=== PATIENT | female | born 1975 | race Caucasian/White ===

== ENCOUNTER 2022-07-01 07:57 | Day surgery (SDC) | payer BC ==
[2022-06-30 12:16] VITALS: BMI 22.3
[2022-07-01 09:17] VITALS: RESP 18; TEMP 98
[2022-07-01 09:37] VITALS: BP 105/65; PULSE 72
== END 2022-07-01 09:37 | disposition home or self-care (01) ==
LOC: FASU-ENDO 07:57
PROVIDERS: ATTEND Internal Medicine Gastroenterology
PROC: 0DJD8ZZ Inspection of Lower Intestinal Tract, Via Natural or Artificial Opening Endoscopic (ICD-10-PCS; principal; 2022-07-01 08:39)
DX: Z12.11 Encounter for screening for malignant neoplasm of colon (principal); Z83.71 Family history of colonic polyps
CPT/HCPCS: 81025